=== PATIENT | female | born 1955 ===

== ENCOUNTER 2017-06-04 09:41 | Emergency (ER) | payer OTHER ==
[2017-06-04 09:52] VITALS: BP 130/79; PULSE 89; RESP 20; O2SAT 98
[2017-06-04] MEDS ORDERED: Albuterol-Ipratrop 3 mg / 0.5 (3 ml) UD INH STA (10:22)
[2017-06-04] MEDS ORDERED: Albuterol-Ipratrop 3 mg / 0.5 (3 ml) UD ONE (10:47)
--- NOTE | 2017-06-04 11:08 | RAD ---
HISTORY: cough COMPARISON: No prior. TECHNIQUE: Chest PA and lateral FINDINGS: LUNGS: No active pulmonary disease. PLEURA: No significant pleural effusion identified. No pneumothorax apparent. CARDIOVASCULAR: No radiographic findings to suggest acute or significant cardiovascular disease. OSSEOUS STRUCTURES: Postoperative changes related to old left clavicular fracture. VISUALIZED UPPER ABDOMEN: Normal. OTHER FINDINGS: None. IMPRESSION: No active disease. No significant interval change compared to the prior examination(s).
--- NOTE | 2017-06-04 11:12 | C.PDOC ---
History Of Present Illness 61 yr old female with PMHx of HTN, presents to the ER with complaints of fever, cough with yellow phlegm and body aches for the past 3 days. patient is s/p clavical surgery 2 weeks ago. Also states she returned from [place] 4 days ago where she was with family member who had the flu. Patient denies chest pain , SOB, nausea, vomiting, abdominal pain, diarrhea, weakness, numbness or headache. HPI: Influenza Time Seen by Provider: 06/04/17 10:01 Chief Complaint: Flu-like Symptoms History Per: Patient Exam Limitations: no limitations Have you had recent travel within the past 21 days to any of the following countries: [place], [place], [place] or [place]?: Yes Onset/Duration Of Symptoms: Days (3) Sick Contacts (Context): Family Member(s) Past Medical History Reviewed: Historical Data, Nursing Documentation, Vital Signs Vital Signs: Last Vital Signs Temp 102.9 F H 06/04/17 09:49 Pulse 89 06/04/17 09:49 Resp 20 06/04/17 09:49 BP 130/79 06/04/17 09:49 Pulse Ox 98 06/04/17 09:49 - Medical History PMH: Asthma, HTN Family History: States: No Known Family Hx - Social History Hx Alcohol Use: No Hx Substance Use: No - Immunization History Hx Tetanus Toxoid Vaccination: No Hx Influenza Vaccination: No Hx Pneumococcal Vaccination: No Review Of Systems Except As Marked, All Systems Reviewed And Found Negative. Constitutional: Positive for: Fever (subjective), Other (+ body aches) Cardiovascular: Negative for: Chest Pain Respiratory: Positive for: Cough, Sputum (yellow). Negative for: Shortness of Breath Gastrointestinal: Negative for: Nausea, Vomiting, Abdominal Pain, Diarrhea Neurological: Negative for: Weakness, Numbness, Headache Physical Exam - Physical Exam Appears: Non-toxic, No Acute Distress Skin: Warm, Dry, No Rash Ear(s): Bilateral: Normal Oral Mucosa: Moist Lips: Normal Appearing Throat: Normal, No Erythema, No Exudate, No Drooling Neck: Normal, Normal ROM, Supple Chest: Symmetrical, Other (+ left clavical clean, dry, intact, no cellultic process) Cardiovascular: Rhythm Regular, No Murmur Respiratory: No Rales, Other (+ course breath sounds bilaterally) Gastrointestinal/Abdominal: Normal Exam, Soft, No Tenderness, No Guarding, No Rebound Extremity: Normal ROM, No Swelling Neurological/Psych: Oriented x3, Normal Speech Medical Decision Making Medical Decision Making: IMPRESSION: Flu like symptoms PLAN: * CXR * Albuterol INH * Motrin PO * Tamiflu PO NOTE: * CXR is negative * Patient is discharged home and instructed to follow up with PMD in 2 days for further evaluation - ECG O2 Sat by Pulse Oximetry: 98 (RA) Pulse Ox Interpretation: Normal - Radiology X-Ray: Viewed By Me, Read By Radiologist X-Ray Interpretation: No Acute Disease Disposition Counseled Patient/Family Regarding: Studies Performed, Diagnosis, Need For Followup, Rx Given - Disposition Disposition: HOME/ ROUTINE Disposition Time: 11:51 Condition: STABLE Additional Instructions: follow up with your doctor in 2 days call to make an appointment take medications as prescribed return to ER if symptoms worsens or progress Prescriptions: Albuterol HFA [Ventolin HFA 90 mcg/actuation (8 g)] 2 puff IH [id number] #1 puff Naproxen [Naprosyn] 500 mg PO BID PRN #16 tab PRN Reason: Pain, Moderate (4-7) Oseltamivir Phosphate [Tamiflu] 75 mg PO BID #10 capsule Instructions: Flu Forms: Gen Discharge Inst Upper Sorbian, [facility] (Upper Sorbian) Print Language: MALIAN - Clinical Impression Clinical Impression: Influenza-like illness - Scribe Statement The provider has reviewed the documentation as recorded by the Naheedibsharmaine Tellez Provider Attestation: All medical record entries made by the Naheedibe were at my direction and personally dictated by me. I have reviewed the chart and agree that the record accurately reflects my personal performance of the history, physical exam, medical decision making, and the department course for this patient. I have also personally directed, reviewed, and agree with the discharge instructions and disposition.
[2017-06-04 11:52] VITALS: TEMP 100.5
== END 2017-06-04 12:01 | disposition home or self-care (01) ==
LOC: C.ER 09:41
DX: J11.1 Influenza due to unidentified influenza virus with other respiratory manifestations (principal)